=== PATIENT | male | born 1975 | race Caucasian/White ===

== ENCOUNTER 2021-12-19 12:57 | Emergency (ER) | payer OTHER ==
[~2021-12-19 12:57] MED LIST: BENTYL 20MG TAB20 MG PO; FLAGYL500 MG PO; LODINE CAP 300300 MG PO; ZOFRAN ODT 4 MG4 MG SL
[2021-12-19 14:00] LABS: HEMOGLOBIN 14.8 gm/dl (14.0-17.5); RED BLOOD COUNT 5.01 M/UL (4.20-5.50); WHITE BLOOD COUNT 6.9 K/UL (4.5-11.0)
[2021-12-19 14:20] LABS: BUN/CREATININE RATIO 16 (0-10)
[2021-12-19 15:13] LABS: BORDETELLA PARAPERTUSSIS Not Detected (Not Detectd); BORDETELLA PERTUSSIS Not Detected (Not Detectd); CHLAMYDIA PNEUMONIAE Not Detected (Not Detectd); CORONAVIRUS HKU1 Not Detected (Not Detectd); CORONAVIRUS NL63 Not Detected (Not Detectd); CORONAVIRUS OC43 Not Detected (Not Detectd); CORONOAVIRUS 229E Not Detected (Not Detectd); HUMAN METAPNEUMOVIRUS Not Detected (Not Detectd); HUMAN RHINOVIRUS/ENTEROVIRUS Not Detected (Not Detectd); INFLUENZA A Not Detected (Not Detectd); INFLUENZA B Not Detected (Not Detectd); MYCOPLASMA PNEUMONIAE Not Detected (Not Detectd); PARAINFLUENZA VIRUS 1 Not Detected (Not Detectd); PARAINFLUENZA VIRUS 2 Not Detected (Not Detectd); PARAINFLUENZA VIRUS 4 Not Detected (Not Detectd); RESPIRATORY SYNCYTIAL VIRUS Not Detected (Not Detectd)
[2021-12-19] MEDS ORDERED: MUCINEX600 MG PO ×2 (15:36→15:39)
[2021-12-19] MEDS ORDERED: PROAIR DIGIHAL90 MCG INH ×2 (15:36→15:39)
[2021-12-19] MEDS ORDERED: VIBRAMYCIN 100100 MG PO (15:36)
[2021-12-19] MEDS ORDERED: ZOFRAN ODT 4 MG4 MG PO ×2 (15:36→15:39)
[2021-12-19] MEDS ORDERED: LYMEPAK100 MG PO (15:39)
[2021-12-19 16:12] LABS: PARAINFLUENZA VIRUS 3 DETECTED (Not Detectd); SARS-CoV-2 NOT DETECTED (Not Detectd)
[2021-12-20] MEDS ORDERED: PREDNISONE 20 M20 MG PO (15:47)
[2021-12-20] MEDS ORDERED: PROVENTIL HFA6.7 GM INH (15:47)
[2021-12-20] MEDS ORDERED: DOXYCYCLINE HY100 MG PO (15:47)
== END 2021-12-19 15:55 | disposition home or self-care (01) ==
LOC: ER1 12:57
PROVIDERS: Emergency Medicine
DX: J18.9 Pneumonia, unspecified organism (principal); Z20.822 Contact with and (suspected) exposure to COVID-19; F17.200 Nicotine dependence, unspecified, uncomplicated
CPT/HCPCS: 0240U; 71045; 71250; 80048; 81001; 85025; 87633; 93005; 94664; 96374; 96375; 99284; J1885; J2405

== ENCOUNTER 2021-12-20 10:11 | Emergency (ER) | payer OTHER ==
[~2021-12-20 10:11] MED LIST changes: +LYMEPAK100 MG PO; +MUCINEX600 MG PO; +PROAIR DIGIHAL90 MCG INH; +VIBRAMYCIN 100100 MG PO; +ZOFRAN ODT 4 MG4 MG PO
[2021-12-20 13:37] LABS: HEMOGLOBIN 14.7 gm/dl (14.0-17.5); RED BLOOD COUNT 5.01 M/UL (4.20-5.50)
[2021-12-20 13:41] LABS: WHITE BLOOD COUNT 11.9 K/UL (4.5-11.0)
[2021-12-20 14:11] LABS: BUN/CREATININE RATIO 21 (0-10)
[2021-12-20] MEDS ORDERED: PROVENTIL HFA6.7 GM INH (15:47)
[2021-12-20] MEDS ORDERED: DOXYCYCLINE HY100 MG PO (15:47)
[2021-12-20] MEDS ORDERED: PREDNISONE 20 M20 MG PO (15:47)
== END 2021-12-20 16:00 | disposition home or self-care (01) ==
LOC: ER1 10:11
PROVIDERS: Emergency Medicine
DX: J16.8 Pneumonia due to other specified infectious organisms (principal); R04.2 Hemoptysis; Z20.822 Contact with and (suspected) exposure to COVID-19; F17.210 Nicotine dependence, cigarettes, uncomplicated; I10 Essential (primary) hypertension
CPT/HCPCS: 0240U; 80053; 82550; 82553; 83874; 83880; 84484; 85025; 93005; 94664; 96374; 99284; J2930; Q9967

== ENCOUNTER → 2022-02-23 | Outpatient (CLI) | payer OTHER ==
[~2022-02-23] MED LIST changes: +DOXYCYCLINE HY100 MG PO; +PREDNISONE 20 M20 MG PO; +PROVENTIL HFA6.7 GM INH
== END ==
LOC: EXRD 10:49
DX: Z87.01 Personal history of pneumonia (recurrent) (principal)
CPT/HCPCS: 71046